=== PATIENT | male | born 1955 | race Asian ===

== ENCOUNTER 2017-12-08 18:35 | Emergency (ER) | payer OTHER ==
[~2017-12-08] VITALS: Ht 182.9 cm; Wt 90.7 kg
[2017-12-08 18:30] VITALS: BP 122/54; TEMP 97.2
[~2017-12-08 18:35] MED LIST: CETIRIZINE PO; DILANTIN PO; DIVA500T2 PO; DIVALPROEX500 MG PO; DOCU100C10 PO; FLUOXETINE20 MG PO; FURO40TA93 PO; HYDR25CA25 PO; HYDR50CA21 PO; LINZESS290 MCG PO; LORA1TAB17 PO; MIRALAX3350 N1 PO; MULTIVITAMIN PO; POTASSIUM CHLORIDE E PO; PROZAC PO; QUET100T2 PO; QUET300T PO; RISP0.25 PO; SEROQUEL PO; SIMV20TA2 PO; TOPAMAX100 MG PO; TRAZ100T PO; [UNRECOGNIZED DRUG - OTHER] PO
[2017-12-09] MEDS ORDERED: MIRALAX3350 N1 PO (00:18)
[2017-12-09] MEDS ORDERED: MULT VITAMIN PO (00:52)
== END 2017-12-08 19:05 | disposition other institution (70) ==
LOC: EDP 18:35
DX: Z04.6 Encounter for general psychiatric examination, requested by authority (principal); R46.89 Other symptoms and signs involving appearance and behavior
CPT/HCPCS: 36415; 99285

== ENCOUNTER 2018-09-17 15:50 | Emergency (ER) | payer OTHER ==
[~2018-09-17] VITALS: Ht 170.2 cm; Wt 90.7 kg
[~2018-09-17 15:50] MED LIST changes: +MULT VITAMIN PO
[2018-09-17 16:22] LABS: PLATELET COUNT 344 K/uL (142-355)
[2018-09-17 16:39] LABS: POTASSIUM 3.6 mmol/L (3.6-5.2)
[2018-09-17 17:20] VITALS: BP 125/73; TEMP 97.7
[2018-09-17] MEDS ORDERED: RISP2TAB2 PO (17:54)
[2018-09-17] MEDS ORDERED: CLON1TAB18 PO (17:55)
[2018-09-17] MEDS ORDERED: MAGN400T4 PO (17:56)
[2018-09-17] MEDS ORDERED: BUMEX1 MG PO (17:56)
[2018-09-17] MEDS ORDERED: MIRALAX3350 N1 PO (17:57)
[2018-09-17] MEDS ORDERED: RISP1TAB PO (17:58)
[2018-09-17] MEDS ORDERED: SEROQUEL100 MG PO (17:59)
[2018-09-17] MEDS ORDERED: TOPAMAX50 MG PO (18:01)
[2018-09-17] MEDS ORDERED: TRILEPTAL300 MG PO (18:02)
[2018-09-17] MEDS ORDERED: LORA2INJ21 INJ (18:03)
== END 2018-09-17 17:20 | disposition other institution (70) ==
LOC: ED 15:50
PROVIDERS: Emergency Medicine
DX: F28 Other psychotic disorder not due to a substance or known physiological condition (principal); Z04.6 Encounter for general psychiatric examination, requested by authority
CPT/HCPCS: 36415; 80053; 81000; 85027; 93005; 99285

== ENCOUNTER 2019-02-27 19:29 | Emergency (ER) | payer OTHER ==
[~2019-02-27] VITALS: Ht 185.4 cm; Wt 79.4 kg
[~2019-02-27 19:29] MED LIST changes: +904272561 PO; +BUMEX1 MG PO; +CLON1TAB18 PO; +LORA2INJ21 INJ; +MAG OXIDE400 MG PO; +MAGN400T4 PO; +PHEN125S PO; +PROPRANOLOL10 MG PO; +RISP1TAB PO; +RISP2TAB2 PO; +SEROQUEL100 MG PO; +TOPAMAX50 MG PO; +TRILEPTAL300 MG PO; +TRIMSOL OPTH; +TYLENOL325 MG PO
[2019-02-27 20:22] LABS: PLATELET COUNT 235 K/uL (142-355)
[2019-02-27 20:31] LABS: POTASSIUM 4.1 mmol/L (3.6-5.2)
[2019-02-27 20:52] VITALS: BP 130/70; TEMP 98.3
[2019-02-27] MEDS ORDERED: QUETIAPINE300 MG PO (21:48)
== END 2019-02-27 20:52 | disposition other institution (70) ==
LOC: ED 19:29
PROVIDERS: Emergency Medicine
DX: F03.91 Unspecified dementia, unspecified severity, with behavioral disturbance (principal); Z04.6 Encounter for general psychiatric examination, requested by authority
CPT/HCPCS: 80053; 85027; 99285